=== PATIENT | female | born 1975 | race Caucasian/White ===

== ENCOUNTER 2019-02-21 06:55 | Emergency (ER) | payer BC, SELFPAY ==
[2019-02-21 06:59] VITALS: BP 152/88; PULSE 118; RESP 18; TEMP 37.1; O2SAT 98
--- NOTE | 2019-02-21 07:04 | ED.GENADUL_ITS ---
Discharge Plan Disposition Patient Disposition: HOME Condition: Good Discharge Details Chief Complaint: Urinary Clinical Impression: UTI (urinary tract infection), uncomplicated Primary Care Provider: Anastasia Lehman ED Provider: Jacob Duvall Medluis and New Rx's Prescriptions: New phenazopyridine 100 mg tablet 100 mg PO TID PRN (Reason: dysuria) Qty: 6 RF: 0 nitrofurantoin macrocrystal 100 mg capsule 100 mg PO BID Qty: 10 RF: 0 fluconazole 150 mg tablet 150 mg PO ONCE Qty: 1 RF: 0 Continued multivitamin [Daily Multiple] 1 EACH tablet 1 ea PO DAILY RF: 0 Vitamin C 250 MG tablet,chewable 2 tab PO DAILY RF: 0 cholecalciferol (vitamin D3) 1,000 UNIT capsule 1,000 unit PO DAILY RF: 0 Fish Oil 1 EACH capsule 1 ea PO DAILY RF: 0 Discharge Instructions Instructions: Urinary Tract Infection in Women (ED) Additional Instructions: Take antibiotic as prescribed. Use Pyridium if needed for urinary symptoms. Diflucan is developed yeast infection. Drink plenty of fluids and stay hydrated. Follow-up with primary care next week if not better. Return to ED if you develop high fevers, back pain, abdominal pain, vomiting, other concerns. Referrals: Anastasia Lehman MD [Primary Care Provider] - Medical Decision Making Patient presenting with UTI symptoms. She has no other related symptoms. Suspect simple cystitis. Urine test is negative. Urinalysis dip positive for blood and leuks. Micro shows red cells and white cells but also epithelial cells. However, given patient's symptomatology will presume cystitis and will start on Macrobid and Pyridium. Patient requests Diflucan as she typically gets yeast infection after antibiotics. We will provide that prescription as well. Follow-up with primary care next week if not better. Return to ED if fever, flank pain, abdominal pain, other problems. Lab Data Lab results reviewed: Yes I reviewed the patient's lab results. HPI General Mode of arrival: ambulatory . Date/Time Provider Initiated Documentation: 02/21/19 07:03 . Limitations to Documentation: no limitations . Information obtained by: patient and RN notes reviewed . HPI Narrative: Patient presents to ED with complaint of dysuria, urgency, slight hematuria at times. Symptoms started yesterday. She has not had a UTI in years. She denies fever, chills, vomiting, back pain, abdominal pain. Related Data Home Medications Medication Instructions Recorded Confirmed Fish Oil 1 ea PO DAILY 01/03/15 02/21/19 Vitamin C 2 tab PO DAILY tab.chew 01/03/15 02/21/19 cholecalciferol (vitamin D3) 1,000 unit PO DAILY 01/03/15 02/21/19 multivitamin [Daily Multiple] 1 ea PO DAILY 01/03/15 02/21/19 fluconazole 150 mg PO ONCE #1 tab 02/21/19 nitrofurantoin macrocrystal 100 mg PO BID #10 cap 02/21/19 phenazopyridine 100 mg PO TID PRN #6 tab 02/21/19 Previous Rx's Medication Instructions Recorded fluconazole 150 mg PO ONCE #1 tab 02/21/19 nitrofurantoin macrocrystal 100 mg PO BID #10 cap 02/21/19 phenazopyridine 100 mg PO TID PRN #6 tab 02/21/19 Allergies Allergy/AdvReac Type Severity Reaction Status Date / Time No Known Allergies Allergy Unverified 02/21/19 07:02 General Stated Complaint: Urinary LESTER: 4 Review of Systems Narrative: As documented in HPI otherwise negative as below. Const: no fever, chills, weakness Resp: no cough, SOB, pleuritic pain CV: no CP, diaphoresis, edema, syncope GI: no abdominal pain, nausea, vomiting, diarrhea Neuro: no headache, numbness, focal weakness, confusion PFSH Family History Mother Personal history of malignant neoplasm BREAST Father No problems noted. Sister No problems noted. Grandfather No problems noted. Grandfather Heart disease Stroke Grandmother No problems noted. Grandmother Essential hypertension Social History Smoking/Tobacco Use Status: Never Alcohol Intake: never Drug use: Never Substance use type: does not use Do you feel safe at home: Yes Do you feel safe in your relationship?: Yes Exam Narrative Exam Narrative: Vitals: Afebrile. Elevated blood pressure and heart rate, likely related to anxiety. Const: WDWN female in NAD. HEENT: NC/AT. Normal facial exam. Eyes: Normal conjunctiva and sclera. Neck: Supple. Trachea midline. Lungs: Normal respiratory effort. GI: Soft. NT/ND. No guarding or rebound. Back: No CVAT. Neuro: A+O x 3. CN grossly in tact. Good strength and no focal deficit. Course Vital Signs Vital signs: Vital Signs Temperature 98.8 F 02/21/19 06:59 Pulse 118 H 02/21/19 06:59 Respiratory Rate 18 02/21/19 06:59 Blood Pressure 152/88 H 02/21/19 06:59 Pulse Oximetry 98 02/21/19 06:59 Temperature 98.8 F 02/21/19 06:59 Temperature Source Temporal Artery Scan 02/21/19 06:59 Pulse 118 H 02/21/19 06:59 Respiratory Rate 18 02/21/19 06:59 Respiratory Effort Non-Labored 02/21/19 06:59 Blood Pressure 152/88 H 02/21/19 06:59 Blood Pressure Position Sitting 02/21/19 06:59 Pulse Oximetry 98 02/21/19 06:59 Oxygen Delivery Method Room Air 02/21/19 06:59 Oxygen Flow Rate 0 02/21/19 06:59 Pain Level 0 02/21/19 06:59
[2019-02-21 07:10] LABS: Bilirubin Negative (Negative); Blood Moderate (Negative); Clarity Clear (Clear); Glucose Negative (Negative); Ketones Negative (Negative); Leukocyte Esterase Small (Negative); Nitrite Negative (Negative); Specific Gravity <= 1.005 (1.005-1.025); Urobilinogen 0.2 EU/dL (Up TO 0.2)
[2019-02-21 07:20] LABS: Bacteria Few HPF (Negative); C & S Indicated? No/Sq. Contamination; Casts Negative LPF (Negative); Crystals Negative HPF (Negative); Epithelial Cells Moderate HPF (Negative); Mucus Negative (Negative); Other Cells Negative (Negative)
[2019-02-21] MEDS: MacroBID 100 MG CAP PO (07:34)
[2019-02-21] MEDS: Phenazopyridine 100 MG TAB PO (07:34)
[2019-02-21 07:37] VITALS: PULSE 89; RESP 16
== END 2019-02-21 07:36 | disposition home or self-care (01) ==
PROVIDERS: Emergency Provider Emergency Medicine; PCP Family Medicine
DX: N39.0 Urinary tract infection, site not specified (principal)
CPT/HCPCS: 81025; 99283; 81003; 81015

== ENCOUNTER 2019-05-08 00:11 | Emergency (ER) | payer BC, SELFPAY ==
[2019-05-08 00:16] VITALS: BP 149/77; PULSE 93; RESP 16; TEMP 37.2; O2SAT 99
[2019-05-08 00:21] VITALS: RESP 16
--- NOTE | 2019-05-08 00:21 | W.ED.GENAD ---
Discharge Plan Disposition Patient Disposition: HOME Condition: Good Discharge Details Chief Complaint: GenMedical Clinical Impression: Cellulitis of hand Primary Care Provider: Anastasia Lehman ED Provider: Matthew Lombardo Home Meds and New Rx's Prescriptions: New cephalexin [Keflex] 500 mg capsule 500 mg PO QID 7 Days Qty: 28 RF: 0 Continued multivitamin [Daily Multiple] 1 EACH tablet 1 ea PO DAILY RF: 0 Vitamin C 250 MG tablet,chewable 2 tab PO DAILY RF: 0 cholecalciferol (vitamin D3) 1,000 UNIT capsule 1,000 unit PO DAILY RF: 0 Fish Oil 1 EACH capsule 1 ea PO DAILY RF: 0 Discharge Instructions Instructions: Cellulitis (ED) Additional Instructions: At this time I believe you have a very mild infection on the dorsum of your hand. Please take the Keflex as directed. Please continue to use ice, Tylenol and Motrin. If you notice any worsening of your symptoms, or any new symptoms such as spreading of the swelling or redness, worsening of pain in your hand or fingers, vomiting, diarrhea, fever, chills, shortness of breath, chest pain, numbness, weakness, or fainting , please return immediately to the emergency department for reevaluation. Please follow up with your primary care provider as soon as possible for reassessment and reevaluation. As always, it was a pleasure participating in your medical care today. Referrals: Anastasia Lehman MD [Primary Care Provider] - Discharge Data Discharge Date/Time-TO BE ENTERED AT DEPARTURE: 05/08/19 00:25 Medical Decision Making This is a pleasant 43-year-old female who is right-hand dominant who presents with mild swelling on the dorsal aspect of her right hand. She had a small scrape on her finger 48 hours ago, then potentially unrelated noted the swelling in the last 24 hours on the dorsal aspect of her hand. Minimal warmth, minimal redness, minimal tenderness on palpation, no fluctuance or evidence of abscess. No clinical evidence of flexor or extensor tenosynovitis. No red streaking traveling proximally. Patient may have had a small ganglionic cyst that ruptured causing secondary inflammation, but this also does have a likelihood of being potential mild early cellulitis. Recommend treatments with ice, Tylenol, Motrin, and Keflex. We will give the first dose here and a prescription for home use. Discussed red flags for which to return. I have extensively reviewed the treatment plan and discharge instructions with the patient and their family. I have addressed all patient concerns at this time. The patient and family was made aware of what symptoms to monitor for that would warrant a return to the emergency department. Discussed the plan with the patient and family, they demonstrate verbal understanding and agreement with our assessment and plan at this time. HPI General Date/Time Provider Initiated Documentation: 05/08/19 00:11. HPI Narrative: This is a 43-year-old female who is right-hand dominant who presents with swelling of the dorsal aspect of her right hand. She states that the swelling began earlier today, she did scratch her index finger 48 hours ago on a plastic light switch, and then noticed the swelling on the dorsal aspect of her hand today. Slightly tender to the touch, mildly warm. Minimal pain with movement of the hand. She denies fever or chills or other complaints. She denies any bites by dogs or cats. Tetanus was updated 8 years ago. No other complaints at this time. Related Data Home Medications Medication Instructions Recorded Confirmed Fish Oil 1 ea PO DAILY 01/03/15 02/21/19 Vitamin C 2 tab PO DAILY tab.chew 01/03/15 02/21/19 cholecalciferol (vitamin D3) 1,000 unit PO DAILY 01/03/15 02/21/19 multivitamin [Daily Multiple] 1 ea PO DAILY 01/03/15 02/21/19 cephalexin [Keflex] 500 mg PO QID 7 Days #28 cap 05/08/19 Previous Rx's Medication Instructions Recorded cephalexin [Keflex] 500 mg PO QID 7 Days #28 cap 05/08/19 Allergies Allergy/AdvReac Type Severity Reaction Status Date / Time No Known Allergies Allergy Unverified 02/21/19 07:02 General Stated Complaint: GenMedical LESTER: 4 Review of Systems All systems reviewed & are unremarkable except as noted in HPI and below PFSH Family History Mother Personal history of malignant neoplasm BREAST Father No problems noted. Sister No problems noted. Grandfather No problems noted. Grandfather Heart disease Stroke Grandmother No problems noted. Grandmother Essential hypertension Social History Smoking/Tobacco Use Status: Never Alcohol Intake: never Drug use: Never Substance use type: does not use Do you feel safe at home: Yes Do you feel safe in your relationship?: Yes Exam Narrative Exam Narrative: 1.Const: Well-nourished, Well-developed, appearing stated age 2.Eyes: PERRL, no conjunctival injection, and symmetrical lids. 3.ENT: Atraumatic external nose and ears. Moist MM. Neck: Symmetric, trachea midline, No thyromegaly. 4.CVS: +S1/S2, No murmurs or gallops. Peripheral pulses 2+ and equal in all extremities. Brisk capillary refill in all extremities. 5.RESP: Unlabored respiratory effort. Clear to auscultation bilaterally. No wheezes rales or rhonchi 6.GI: Soft, Nontender/Nondistended, No hepatosplenomegaly. No guarding or rebound. 7.MSK: Normocephalic/Atraumatic, Extremities w/o deformity or significant Ttp No cyanosis or clubbing, Normal movement of all extremities. Right hand: Symmetrically palpable radial and ulnar pulses. Capillary refill less than 2 seconds to all digits. Intact sensation to light touch of the radial, median and ulnar nerves demonstrated by testing in the dorsal web space of the thumb, the distal palmar aspect of the index finger, and the lateral surface of the fifth finger. 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 Intact recurrent median nerve as demonstrated by ability to move thumb fully through opposition, abduction and flexion. There is no tenderness whatsoever on passive or active flexion or extension of all fingers. Patient does have mild swelling of the dorsal aspect of the right hand, no fluctuance, minimal warmth. Minimal redness. No subcutaneous crepitus. No evidence of significant abrasion laceration or scrape. There is a small scratch noted on the index finger however this is no surrounding erythema edema or fluctuance or signs of infection whatsoever. No clinical evidence of flexor or extensor tenosynovitis. No tracking redness 8.Skin: Warm, Dry. No rashes or lesions. 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 Sensation grossly intact, no focal neurologic deficits. 10.Psych: (AAO) x3. Appropriate mood and affect Course Vital Signs Vital signs: Vital Signs Temperature 37.2 C 05/08/19 00:16 Pulse 93 H 05/08/19 00:16 Respiratory Rate 16 05/08/19 00:16 Blood Pressure 149/77 H 05/08/19 00:16 Pulse Oximetry 99 05/08/19 00:16 Temperature 37.2 C 05/08/19 00:16 Temperature Source Skin 05/08/19 00:16 Pulse 93 H 05/08/19 00:16 Respiratory Rate 16 05/08/19 00:16 Blood Pressure 149/77 H 05/08/19 00:16 Blood Pressure Position Sitting 05/08/19 00:16 Pulse Oximetry 99 05/08/19 00:16 Oxygen Delivery Method Room Air 05/08/19 00:16 Oxygen Flow Rate 0 05/08/19 00:16 Pain Level 4 05/08/19 00:16
[2019-05-08] MEDS: Cephalexin 500 MG CAP PO (00:26)
== END 2019-05-08 00:25 | disposition home or self-care (01) ==
LOC: ER 00:30
PROVIDERS: Emergency Provider Student in an Organized Health Care Education/Training Program; PCP Family Medicine
DX: L03.113 Cellulitis of right upper limb (principal); S60.410A Abrasion of right index finger, initial encounter; W26.8XXA Contact with other sharp object(s), not elsewhere classified, initial encounter
CPT/HCPCS: 99283

== ENCOUNTER 2021-09-02 03:29 | Outpatient (CLI) | payer BC, SELFPAY ==
[2021-09-02 07:25] LABS: HCT 44.1 % (36.0-46.0); HGB 14.4 g/dL (11.2-15.7); MCH 30.7 pg (27.0-33.0); MCHC 32.7 % (32.0-36.0); MCV 94 fL (80-95); MPV 9.7 fL (8.0-11.0); Platelet Count 338 10^3/uL (130-400); RBC 4.69 10^6/uL (3.93-5.22); RDW 12.2 % (11.7-14.6); RDW-SD 42.6 fL; WBC 6.71 10^3/uL (4.4-10.8)
[2021-09-02 08:31] LABS: ALT 20 U/L (14-59); AST 12 U/L (15-37); Alkaline Phosphatase 61 U/L (46-116); Anion Gap 10.7 mmol/L (3-11); BUN 7 mg/dL (7-18); CO2 27.3 mmol/L (21.0-32.0); CREATININE 0.7 mg/dL (0.55-1.02); Calcium 9.3 mg/dL (8.5-10.1); Calculated LDL 107 mg/dL (<100); Chloride 104 mmol/L (98-107); Cholesterol 191 mg/dL (<200); Glucose 111 mg/dL (74-106); HDL Cholesterol 68 mg/dL (40-60); Sodium 142 mmol/L (136-145); Total Protein 7.1 g/dL (6.4-8.2); Triglyceride 84 mg/dL (<150)
[2021-09-02 08:50] LABS: Bilirubin, Total 0.3 mg/dL (0.2-1.0)
[2021-09-03 10:20] LABS: Hepatitis C Ab w Rflx HCV PCR Negative (Negative)
[2021-09-03 10:26] LABS: HIV-1/2 Ag & Ab Screen Negative (Negative)
== END 2021-09-02 03:30 | disposition home or self-care (01) ==
LOC: LBO 03:29
PROVIDERS: PCP Nurse Practitioner; Visit Provider Family Medicine
DX: I10 Essential (primary) hypertension (principal); Z13.220 Encounter for screening for lipoid disorders; Z11.4 Encounter for screening for human immunodeficiency virus [HIV]; Z11.59 Encounter for screening for other viral diseases
CPT/HCPCS: 36415; 80053; 80061; 85027; 86803; 87389; 84443

== ENCOUNTER 2023-11-23 18:31 | Outpatient (REF) | payer BC, SELFPAY ==
--- OUTSIDE RECORDS SUMMARY | 2023-11-23 18:33 | XMS_ITS | Continuity of Care Document ---
Author Organization [facility] Address [address] [place] [address] Encounter [id number] FIN NBR [id number] Date(s): 10/26/23 - 10/26/[address] [id number] Discharge Disposition: Home Allergies, Adverse Reactions, Alerts No Known Medication Allergies Assessment and Plan Future Appointments Future Scheduled Tests Radiology* MG Mammo Screening Bilateral 12/16/23 Medications calcium carbonate 600 mg (elemental Ca 240 mg) oral tablet 600 mg 1 tab, Oral, BID, 0 Refill(s) Start Date: 10/28/22 Status: Ordered Eligen B12 1000 mcg oral tablet 1 tab, Oral, Daily, on an empty stomach, 0 Refill(s) Start Date: 10/28/22 Status: Ordered Fish Oil 500 mg oral capsule 1,000 mg = 2 cap, Oral, BID, 0 Refill(s) Start Date: 10/28/22 Status: Ordered magnesium oxide 400 mg (241.3 mg elemental magnesium) oral tablet 400 mg = 1 tab, Oral, Daily, 0 Refill(s) Start Date: 10/28/22 Stop Date: 11/04/22 Status: Ordered multivitamin adult, oral tablet 1 tab, Oral, Daily, 0 Refill(s) Start Date: 10/28/22 Status: Ordered Vitamin D3 400 intl units oral tablet 10 mcg = 1 tab, Oral, Daily, 0 Refill(s) Start Date: 10/28/22 Status: Ordered Problem List Condition Confirmation Course Effective Dates Status Health St atus Informant H/O: vertigo Confirmed Active Heart murmur Confirmed Active Procedures Procedure Date Related Diagnosis Body Site Status Colonoscopy 1 07/29/23 Completed Extraction of wisdom tooth Completed 1auto-populated from documented surgical case Social History Social History Type Response Tobacco Never tobacco user T obacco Use:. Sex Female Patient Care team information Care Team Related Persons Name: MARIANELA MORE Address: Home
--- OUTSIDE RECORDS SUMMARY | 2023-11-23 18:33 | XMS_ITS | Continuity of Care Document ---
Author Organization [facility] Address [address] [place] [address] Encounter LTTL_DC FIN NBR [id number] Date(s): 07/29/23 - 07/29/[address] [address]- Encounter Diagnosis Encounter for screening colonoscopy(Discharge Diagnosis) - 07/29/23 Discharge Disposition: Home or Self Care Attending Physician: Jorge Garvin MD Admitting Physician: Jorge Garvin MD Referring Physician: Jorge Garvin MD Allergies, Adverse Reactions, Alerts No Known Medication Allergies Assessment and Plan Extracted from: Title:H & P Author:Jorge Garvin MD Valerio e:07/29/23 1.??Encounter for screening colonoscopy??Z12.11 ??Colonoscopy today. Orders: sodium chloride 0.9% flush, 10 mL, IV Flush, Injection, every 8 hr, First Dose: 07/29/23 7:00:00 EDT, Routine sodium chloride 0.9% flush, 10 mL, IV Flush, Injection, As Directed, First Dose: 07/29/23 6:50:00 EDT, Physician Stop, Routine Sodium Chloride 0.9% 1,000 mL, Total Volume (mL): 1,000, 1,000 mL, Soln-IV, IV, 50 mL/hr, Start Date: 07/29/23 6:50:00 EDT, 67 kg, Populate Charting Weight From Order, 1.7, m2 Blood Glucose Monitoring POC RE, 07/29/23 6:50:00 EDT, Stop date 07/29/23 6:50:00 EDT Diet Order, 07/29/23 6:52:00 EDT, Regular Discharge Patient, 07/29/23 6:52:00 EDT, Discharge when stable per anesthesia criteria Discharge Patient, 07/29/23 6:52:00 EDT, Discharge when stable per SDS criteria Discharge Patient Instructions, Do not sign any contracts, make any major decisions, or drive or operate machinery for 24 hours Discharge Patient Instructions, It is important that a responsible adult drive you home today Discharge Patient Instructions, You may resume your normal activity in 24 hours Discharge Patient Instructions, A light first meal may feel better in your stomach Discharge Patient Instructions, Call with any additional questions or concerns Discharge Patient Instructions, Passing gas rectally and belching is normal Discharge Patient Instructions, Call or come to emergency department for fever greater than 100 ??F Discharge Patient Instructions, Cramping and abdominal bloating should subside in 1 hour or so Discharge Patient Instructions, Call or come to emergency department chest pain, or shortness of breath Discharge Patient Instructions, You may experience some gas cramps and abdominal bloating Discharge Patient Instructions, Call or come to emergency department for dizziness Discharge Patient Instructions, Call or come to emergency department if vomiting blood or having black bowel movements, rectal bleeding or passing blood clots Discharge Patient Instructions, Call or come to emergency department if having unusual pain or severe abdominal pain Discharge Patient Instructions, Avoid alcohol, tranquilizers, sleeping pills, or cold medicines for 24 hours Discharge Patient Instructions, You should not be responsible for the care of others Obtain consent, 07/29/23 6:50:00 EDT, Constant Order, 07/29/23 6:50:00 EDT Peripheral IV Insertion, 07/29/23 6:50:00 EDT Saline Lock Convert From IV, 07/29/23 6:50:00 EDT, Stop date 07/29/23 6:50:00 EDT Vital Signs, 07/29/23 6:52:00 EDT, Stop date 07/29/23 6:52:00 EDT, As needed Vital Signs, 07/29/23 6:50:00 EDT, Stop date 07/29/23 6:50:00 EDT, Routine Vital Signs, 07/29/23 6:52:00 EDT, Once, Stop date 07/29/23 6:52:00 EDT Future Appointments Medications calcium carbonate 600 mg (elemental Ca [...] Date Related Diagnosis Body Site Status Colonoscopy Biopsy 1 07/29/23 Comp leted Extraction of wisdom tooth Completed 1auto-populated from documented surgical case Vital Signs Most recent to oldest [Reference Range]: 1 2 Temperature Temporal Artery [36-38 Deg C ] 36.9 Deg C (07/29/23 11:15 AM) 36.8 Deg C (07/29/23 9:25 AM) Heart Rate Monitored [60-100 bpm] 97 bpm (07/29/23 11:15 AM) Respiratory Rate [12-24 br/min] 16 br/mi n (07/29/23 11:15 AM) 16 br/min (07/29/23 9:25 AM) Blood Pressure [90-140/60-90 mmHg] 119/8 4mmHg (07/29/23 11:15 AM) 120/84mmHg (07/29/23 9:25 AM) Weight 68.95 kg (07/29/23 9:25 AM) 67 kg (07/24/23 3:23 PM) Weight Dosing 67.000 kg (07/24/23 3:23 PM) Height 155 cm (07/29/23 9:25 AM) 155 cm (07/24/23 3:23 PM) Body Mass Index 28.7 kg/m2 (07/29/23 9:25 AM) Social History Social History Type Response Tobacco Never tobacco user T obacco Use:. Sex Hospital Discharge Instructions Patient Education 07/29/2023 10:29:55 Colonoscopy, Adult, Care After Colonoscopy, Adult, Care After The following information offers guidance on how to care for yourself after your procedure. Your health care provider may also give you more specific instructions. If you have problems or questions, contact your health care provider. What can I expect after the procedure? After the procedure, it is common to have: ??? A small amount of blood in your stool for 24 hours after the procedure. ??? Some gas. ??? Mild cramping or bloating of your abdomen. Follow these instructions at home: Eating and drinking ??? Drink enough fluid to keep your urine pale yellow. ??? Follow instructions from your health care provider about eating or drinking restrictions. ??? Resume your normal diet as told by your health care provider. Avoid heavy or fried foods that are hard to digest. Activity ??? Rest as told by your health care provider. ??? Avoid sitting for a long time without moving. Get up to take short walks every 1???2 hours. This is important to improve blood flow and breathing. Ask for help if you feel weak or unsteady. ??? Return to your normal activities as told by your health care provider. Ask your health care provider what activities are safe for you. Managing cramping and bloating ??? Try walking around when you have cramps or feel bloated. ??? If directed, apply heat to your abdomen as told by your health care provider. Use the heat source that your health care provider recommends, such as a moist heat pack or a heating pad. ??? Place a towel between your skin and the heat source. ??? Leave the heat on for 20???30 minutes. ??? Remove the heat if your skin turns bright red. This is especially important if you are unable to feel pain, heat, or cold. You have a greater risk of getting burned. General instructions ??? If you were given a sedative during the procedure, it can affect you for several hours. Do not drive or operate machinery until your health care provider says that it is safe. ??? For the first 24 hours after the procedure: ??? Do not sign important documents. ??? Do not drink alcohol. ??? Do your regular daily activities at a slower pace than normal. ??? Eat soft foods that are easy to digest. ??? Take [id number] and prescription medicines only as told by your health care provider. ??? Keep all follow-up visits. This is important. Contact a health care provider if: ??? You have blood in your stool 2???3 days after the procedure. Get help right away if: ??? You have more than a small spotting of blood in your stool. ??? You have large blood clots in your stool. ??? You have swelling of your abdomen. ??? You have nausea or vomiting. ??? You have a fever. ??? You have increasing pain in your abdomen that is not relieved with medicine. These symptoms may be an emergency. Get help right away. Call 911. ??? Do not wait to see if the symptoms will go away. ??? Do not drive yourself to the hospital. Summary ??? After the procedure, it is common to have a small amount of blood in your stool. You may also have mild cramping and bloating of your abdomen. ??? If you were given a sedative during the procedure, it can affect you for several hours. Do not drive or operate machinery until your health care provider says that it is safe. ??? Get help right away if you have a lot of blood in your stool, nausea or vomiting, a fever, or increased pain in your abdomen. This information is not intended to replace advice given to you by your health care provider. Make sure you discuss any questions you have with your health care provider. Document Revised: 11/27/2021 Document Reviewed: 11/27/2021 [employer] Patient Education ?? 2022 [employer] Discharge instructions * Kerrie Rosenthal: PERFORM Event Display: Discharge Instructions Authored Date: [id number] ZION MORE :1975 Age:47 years Sex:Female Visit Date:07/29/2023 Hospital Discharge Instructions We would like to thank you for allowing us to assist you with your healthcare needs. The following includes patient education materials and information regarding your injury/illness. Your Next Steps Discharge Orders Discharge Patient Instructions, You may experience some gas cramps and abdominal bloating Discharge Patient Instructions, Cramping and abdominal bloating should subside in 1 hour or so Discharge Patient Instructions, Passing gas rectally and belching is normal Discharge Patient Instructions, A light first meal may feel better in your stomach Discharge Patient Instructions, You may resume your normal activity in 24 hours Discharge Patient Instructions, It is important that a responsible adult drive you home today Discharge Patient Instructions, Do not sign any contracts, make any major decisions, or drive or operate machinery for 24 hours Discharge Patient Instructions, You should not be responsible for the care of others Discharge Patient Instructions, Avoid alcohol, tranquilizers, sleeping pills, or cold medicines for24 hours Discharge Patient Instructions, Call or come to emergency department if having unusual pain or severe abdominal pain Discharge Patient Instructions, Call or come to emergency department if vomiting blood or having black bowel movements, rectal bleeding or passing blood clots Discharge Patient Instructions, Call or come to emergency department for dizziness Discharge Patient Instructions, Call or come to emergency department chest pain, or shortness of breath Discharge Patient Instructions, Call or come to emergency department for fever greater than 100 ??F Discharge Patient Instructions, Call with any additional questions or concerns Scheduled Future Appointments Thursday 8:00 AM EDT ?? With: Leila Paredes, MANAGER MERCHANDISE Where: [facility] Women's Health Status: Confirmed Medications What How Much When Instructions Next Dose Unchanged calcium carbonate (calcium carbonate 600 mg (elemental Ca 240 mg) oral tablet) 1 tab Oral (given by mouth) 2 times a day Unchanged cholecalciferol (Vitamin D3 400 intl units oral tablet) 1 tab Oral (given by mouth) Every day Unchanged cyanocobalamin (Eligen B12 1000 mcg oral tablet) 1 tab Oral (given by mouth) Every day on an empty stomach ?? Unchanged magnesium oxide (magnesium oxide 400 mg (241.3 mg elemental magnesium) oral tablet) 1 tab Oral (given by mouth) Every day Unchanged multivitamin (multivitamin adult, oral tablet) 1 tab Oral (given by mouth) Every day Unchanged omega-3 polyunsaturated fatty acids (Fish Oil 500 mg oral capsule) 2 Capsules Oral (given by mouth) 2 times a day Your Summary Your Care Team Admitting Physician - Jorge Garvin MD Attending Physician - Jorge Garvin MD Referring Physician - Jorge Garvin MD Your Diagnosis Encounter for screening colonoscopy Problems Ongoing - Any problem that you are currently receiving treatment for. H/O: vertigo Heart murmur Historical - Any problem that you are no longer receiving treatment for. Procedures Performed ???Colonoscopy Biopsy (07/29/2023) Discharge Vitals Temperature??(Temporal Artery) 98.2 ??F (36.8 ??C) Respiratory Rate?? 16 Blood Pressure?? 120/84?? SpO2?? 100% Height?? 61.02 in (155 cm) Weight?? 152.03 lb (68.95 kg) BMI?? 28.7 Allergies No Known Medication Allergies Education Materials Colonoscopy, Adult, Care After The following information offers guidance on how to care for yourself after your procedure. Your health care provider may also give you more specific instructions. If you have problems or questions, contact your health care provider. What can I expect after the procedure? After the procedure, it is common to have: ? A small amount of blood in your stool for 24 hours after the procedure. ? Some gas. ? Mild cramping or bloating of your abdomen. Follow these instructions at home: Eating and drinking ? Drink enough fluid to keep your urine pale yellow. ? Follow instructions from your health care provider about eating or drinking restrictions. ? Resume your normal diet as told by your health care provider. Avoid heavy or fried foods that are hard to digest. Activity ? Rest as told by your health care provider. ? Avoid sitting for a long time without moving. Get up to take short walks every 1???2 hours. This isimportant to improve blood flow and breathing. Ask for help if you feel weak or unsteady. ? Return to your normal activities as told by your health care provider. Ask your health care provider what activities are safe for you. Managing cramping and bloating ? Try walking around when you have cramps or feel bloated. ? If directed, apply heat to your abdomen as told by your health care provider. Use the heat source that your health care provider recommends, such as a moist heat pack or a heating pad. ? Place a towel between your skin and the heat source. ? Leave the heat on for 20???30 minutes. ? Remove the heat if your skin turns bright red. This is especially important if you are unable to feel pain, heat, or cold. You have a greater risk of getting burned. General instructions ? If you were given a sedative during the procedure, it can affect you for several hours. Do not drive or operate machinery until your health care provider says that it is safe. ? For the first 24 hours after the procedure: ? Do not sign important documents. ? Do not drink alcohol. ? Do your regular daily activities at a slower pace than normal. ? Eat soft foods that are easy to digest. ? Take hqtl-mqr-zebevnu and prescription medicines only as told by your health care provider. ? Keep all follow-up visits. This is important. Contact a health care provider if: ? You have blood in your stool 2???3 days after the procedure. Get help right away if: ? You have more than a small spotting of blood in your stool. ? You have large blood clots in your stool. ? You have swelling of your abdomen. ? You have nausea or vomiting. ? You have a fever. ? You have increasing pain in your abdomen that is not relieved with medicine. These symptoms may be an emergency. Get help right away. Call 911. ? Do not wait to see if the symptoms will go away. ? Do not drive yourself to the hospital. Summary ? After the procedure, it is common to have a small amount of blood in your stool. You may also have mild cramping and bloating of your abdomen. ? If you were given a sedative during the procedure, it can affect you for several hours. Do not drive or operate machinery until your health care provider says that it is safe. ? Get help right away if you have a lot of blood in your stool, nausea or vomiting, a fever, or increased pain in your abdomen. This information is not intended to replace advice given to you by your health care provider. Make sure you discuss any questions you have with your health care provider. Document Revised: 11/27/2021 Document Reviewed: 11/27/2021 [employer] Patient Education ?? 2022 [employer] Patient/Bag End Sewer Signature Patient Name:ZION MORE I have received this information and my questions have been answered. Patient/Bag End Sewer Name: Patient/Bag End Sewer Signature: Relationship to Patient: Witness Name/Signature: Date: Electronically Signed on: 07/29/2023 11:32 EDTSigned by:Kerrie Calle A: PERFORM Event Display: Discharge Instructions Authored Date: [id number] ZION MORE :1975 Age:47 years Sex:Female Visit Date:07/29/2023 Hospital Discharge Instructions We would like to thank you for allowing us to assist you with your healthcare needs. The following includes patient education materials and information regarding your injury/illness. Your Next Steps Discharge Orders Discharge Patient Instructions, You may experience some gas cramps and abdominal bloating Discharge Patient Instructions, Cramping and abdominal bloating should subside in 1 hour or so Discharge Patient Instructions, Passing gas rectally and belching is normal Discharge Patient Instructions, A light first meal may feel better in your stomach Discharge Patient Instructions, You may resume your normal activity in 24 hours Discharge Patient Instructions, It is important that a responsible adult drive you home today Discharge Patient Instructions, Do not sign any contracts, make any major decisions, or drive or operate machinery for 24 hours Discharge Patient Instructions, You should not be responsible for the care of others Discharge Patient Instructions, Avoid alcohol, tranquilizers, sleeping pills, or cold medicines for24 hours Discharge Patient Instructions, Call or come to emergency department if having unusual pain or severe abdominal pain Discharge Patient Instructions, Call or come to emergency department if vomiting blood or having black bowel movements, rectal bleeding or passing blood clots Discharge Patient Instructions, Call or come to emergency department for dizziness Discharge Patient Instructions, Call or come to emergency department chest pain, or shortness of breath Discharge Patient Instructions, Call or come to emergency department for fever greater than 100 ??F Discharge Patient Instructions, Call with any additional questions or concerns Scheduled Future Appointments Thursday 8:00 AM EDT ?? With: Leila Paredes APRN Where: [facility] Women's Health Status: Confirmed Medications What How Much When Instructions Next Dose Unchanged calcium carbonate (calcium carbonate 600 mg (elemental Ca 240 mg) oral tablet) 1 tab Oral (given by mouth) 2 times a day Unchanged cholecalciferol (Vitamin D3 400 intl units oral tablet) 1 tab Oral (given by mouth) Every day Unchanged cyanocobalamin (Eligen B12 1000 mcg oral tablet) 1 tab Oral (given by mouth) Every day on an empty stomach ?? Unchanged magnesium oxide (magnesium oxide 400 mg (241.3 mg elemental magnesium) oral tablet) 1 tab Oral (given by mouth) Every day Unchanged multivitamin (multivitamin adult, oral tablet) 1 tab Oral (given by mouth) Every day Unchanged omega-3 polyunsaturated fatty acids (Fish Oil 500 mg oral capsule) 2 Capsules Oral (given by mouth) 2 times a day Your Summary Your Care Team Admitting Physician - Jorge Garvin MD Attending Physician - Jorge Garvin MD Referring Physician - Jorge Garvin MD Your Diagnosis Encounter for screening colonoscopy Problems Ongoing - Any problem that you are currently receiving treatment for. H/O: vertigo Heart murmur Historical - Any problem that you are no longer receiving treatment for. Procedures Performed ???Colonoscopy Biopsy (07/29/2023) Discharge Vitals Temperature??(Temporal Artery) 98.2 ??F (36.8 ??C) Respiratory Rate?? 16 Blood Pressure?? 120/84?? SpO2?? 100% Height?? 61.02 in (155 cm) Weight?? 152.03 lb (68.95 kg) BMI?? 28.7 Allergies No Known Medication Allergies Patient/Bag End Sewer Signature Patient Name:ZION MORE I have received this information and my questions have been answered. Patient/Bag End Sewer Name: Patient/Bag End Sewer Signature: Relationship to Patient: Witness Name/Signature: Date: Electronically Signed on: 07/29/2023 11:26 EDTSigned by:GAG History and physical note * Event Display: History and Physical Update * Jorge Garvin MD: PERFORM Event Display: History and Physical Authored Date: [id number] ZION MORE :1975 Age:47 years Sex:Female Visit Date:07/29/2023 History of Present Illness 47-year-old female at average risk for colorectal cancer for index reading colonoscopy. Physical Exam Vitals & Measurements T:??36.8?C ??(Temporal Artery)?? RR:??16?? BP:??120/84?? SpO2:??100%?? HT:??155??cm?? WT:??68.95??kg?? BMI:??28.7?? O2 Therapy:??Room air?? Well-developed well-nourished white female no acute distress Lungs: Clear to auscultation bilaterally Heart: Regular rhythm S1-S2 Abdomen: Soft nontender Assessment/Plan 1.??Encounter for screening colonoscopy??Z12.11 ??Colonoscopy today. Orders: sodium chloride 0.9% flush, 10 mL, IV Flush, Injection, every 8 hr, First Dose: 07/29/23 7:00:00 EDT, Routine sodium chloride 0.9% flush, 10 mL, IV Flush, Injection, As Directed, First Dose: 07/29/23 6:50:00 EDT, Physician Stop, Routine Sodium Chloride 0.9% 1,000 mL, Total Volume (mL): 1,000, 1,000 mL, Soln-IV, IV, 50 mL/hr, Start Date: 07/29/23 6:50:00 EDT, 67 kg, Populate Charting Weight From Order, 1.7, m2 Blood Glucose Monitoring POC RE, 07/29/23 6:50:00 EDT, Stop date 07/29/23 6:50:00 EDT Diet Order, 07/29/23 6:52:00 EDT, Regular Discharge Patient, 07/29/23 6:52:00 EDT, Discharge when stable per anesthesia criteria Discharge Patient, 07/29/23 6:52:00 EDT, Discharge when stable per SDS criteria Discharge Patient Instructions, Do not sign any contracts, make any major decisions, or drive or operate machinery for 24 hours Discharge Patient Instructions, It is important that a responsible adult drive you home today Discharge Patient Instructions, You may resume your normal activity in 24 hours Discharge Patient Instructions, A light first meal may feel better in your stomach Discharge Patient Instructions, Call with any additional questions or concerns Discharge Patient Instructions, Passing gas rectally and belching is normal Discharge Patient Instructions, Call or come to emergency department for fever greater than 100 ??F Discharge Patient Instructions, Cramping and abdominal bloating should subside in 1 hour or so Discharge Patient Instructions, Call or come to emergency department chest pain, or shortness of breath Discharge Patient Instructions, You may experience some gas cramps and abdominal bloating Discharge Patient Instructions, Call or come to emergency department for dizziness Discharge Patient Instructions, Call or come to emergency department if vomiting blood or having black bowel movements, rectal bleeding or passing blood clots Discharge Patient Instructions, Call or come to emergency department if having unusual pain or severe abdominal pain Discharge Patient Instructions, Avoid alcohol, tranquilizers, sleeping pills, or cold medicines for24 hours Discharge Patient Instructions, You should not be responsible for the care of others Obtain consent, 07/29/23 6:50:00 EDT, Constant Order, 07/29/23 6:50:00 EDT Peripheral IV Insertion, 07/29/23 6:50:00 EDT Saline Lock Convert From IV, 07/29/23 6:50:00 EDT, Stop date 07/29/23 6:50:00 EDT Vital Signs, 07/29/23 6:52:00 EDT, Stop date 07/29/23 6:52:00 EDT, As needed Vital Signs, 07/29/23 6:50:00 EDT, Stop date 07/29/23 6:50:00 EDT, Routine Vital Signs, 07/29/23 6:52:00 EDT, Once, Stop date 07/29/23 6:52:00 EDT Problem List/Past Medical History Ongoing H/O: vertigo Heart murmur Historical Procedure/Surgical History ???Extraction of wisdom tooth Medications Inpatient Sodium Chloride 0.9% 1,000 mL, 1000 mL, IV sodium chloride 0.9% flush, 10 mL, IV Flush, every 8 hr sodium chloride 0.9% flush, 10 mL, IV Flush, As Directed Home calcium carbonate 600 mg (elemental Ca 240 mg) oral tablet, 600 mg= 1 tab, Oral, BID Eligen B12 1000 mcg oral tablet, 1 tab, Oral, Daily Fish Oil 500 mg oral capsule, 1000 mg= 2 cap, Oral, BID magnesium oxide 400 mg (241.3 mg elemental magnesium) oral tablet, 400 mg= 1 tab, Oral, Daily multivitamin adult, oral tablet, 1 tab, Oral, Daily Vitamin D3 400 intl units oral tablet, 10 mcg= 1 tab, Oral, Daily Allergies No Known Medication Allergies Social History Alcohol Current, 1-2 times per year Electronic Cigarette/Vaping Electronic Cigarette Use: Never. Employment/School Employed Home/Environment Lives with Children, Significant other. Living situation: Home/Independent. Sexual Sexually active: Yes. Substance Use Never Tobacco Never tobacco user Tobacco Use:. Family History Breast cancer: Mother. Cervical cancer: Mother. High cholesterol: Father. Family Member(s): ?? MOTHER, at age: 74 Years. Cause of : Electronically Signed on 07/29/23 10:54 AM Jorge Garvin MD Patient Care team information Care Team Related Persons Name: MARIANELA MORE
--- OUTSIDE RECORDS SUMMARY | 2023-11-23 18:33 | XMS_ITS | Continuity of Care Document ---
Author Organization [facility] Address [address] [place] [address] Encounter LTTL_AZ FIN NBR [id number] Date(s): 10/29/22 - 10/29/22 [facility] [address] [place] [address]- [place] Encounter Diagnosis Encounter for screening mammogram for malignant neoplasm of breast(Final) - Discharge Disposition: Home or Self Care Attending Physician: Leila Paredes Admitting Physician: Leila Paredes Referring Physician: Leila Paredes Assessment and Plan Future Appointments Medications calcium carbonate 600 mg (elemental Ca 240 mg) oral tablet 600 mg 1 tab, Oral, BID, # 60 tab, 0 Refill(s) Start Date: 10/28/22 Status: Ordered Eligen B12 1000 mcg oral tablet 1 tab, Oral, Daily, on an empty stomach, # 30 tab, 0 Refill(s) Start Date: 10/28/22 Status: Ordered Fish Oil 500 mg oral capsule 1,000 mg = 2 cap, Oral, BID, # 130 cap, 0 Refill(s) Start Date: 10/28/22 Status: Ordered magnesium oxide 400 mg (241.3 mg elemental magnesium) oral tablet 400 mg = 1 tab, Oral, Daily, # 7 tab, 0 Refill(s) Start Date: 10/28/22 Stop Date: 11/04/22 Status: Ordered multivitamin adult, oral tablet 1 tab, Oral, Daily, # 30 tab, 0 Refill(s) Start Date: 10/28/22 Status: Ordered Vitamin D3 400 intl units oral tablet 10 mcg = 1 tab, Oral, Daily, # 30 tab, 0 Refill(s) Start Date: 10/28/22 Status: Ordered Procedures Procedure Date Related Diagnosis Body Site Status Extraction of wisdom tooth Completed Results Radiology Reports * Exam Date Time Procedure Performing Provider Status 10/29/22 7:39 AM MG Mammo Screening Bilateral DomainUse r, Generated; Auth (Verified) Notes: (MG Mammo Screening Bilateral) Reason For Exam: screening MG Mammo Screening Bilateral EXAM DESCRIPTION: MG Mammo Screening Bilateral 10/29/2022 INDICATION: SCREENING COMPARISON: 10/28/2021 and 10/24/2020 BREAST DENSITY: The breasts are heterogeneously dense which may obscure small masses. FINDINGS: MLO and CC views were performed with digital breast tomosynthesis. Images were reviewed using computer aided detection. No asymmetry, architectural distortion or suspicious grouping of calcifications to suggest malignancy in either breast. ASSESSMENT: No mammographic evidence of malignancy. Negative. BI-RADS category 1. RECOMMENDATION: Screening mammography in 1 year JOB #: [id number] Final Signed by: Alvaro Foley MD Signed (Electronic Signature): 10/29/2022 9:22 am Social History Social History Type Response Tobacco Never tobacco user T obacco Use:. Sex Patient Care team information Care Team Related Persons Name: MARIANELA MORE
--- OUTSIDE RECORDS SUMMARY | 2023-11-23 18:33 | XMS_ITS | Encounter Summary ---
Author Organization [facility] Address [address] [place] [address] Care Team Providers Care Hand Crocheter Name Role Phone Lenin Main MD Primary Care Provider Unavailab le Encounter Details Date Type Department Care Team (Late st Contact Info) Description 09/02/[address] [facility] Pathology & Laboratory Medicine - [facility] [address] [place] [address] Outr Resulting Lab, Provider Social History Tobacco Use Types Packs/Day Years Used Date Smoking Tobacco: Never Assessed Sex and Gender Information Value Date Recorded Sex Assigned at Not on file Gender Identity Not on file Sexual Orientation Not on file documented as of this encounter Plan of Treatment Not on file documented as of this encounter Procedures Procedure Name Priority Date/Time Associated Diagnosis Comments HEPATITIS C AB W REFLEX TO HCV RNA BY PCR Routine 09/02/2021 7:08 EDT documented in this encounter Results * HEPATITIS C AB W REFLEX TO HCV RNA BY PCR (09/02/2021 7:08 EDT) Hep C Antibody Negative Negative 09/03/2021 10:16 EDT [facility] Blood VENOUS BLOOD / Unknown 09/02/2021 7:08 EDT 09/02/2021 17:09 EDT Provider Outr Resulting Lab CHEMISTRY & BLOOD GAS ORDERABLES [facility] [address] [place] [address] documented in this encounter Visit Diagnoses Not on filedocumented in this encounter Care Teams Hand Crocheter Relationship Specialty Start Date End Date Lenin Main MD PCP - General 03/05/15 documented as of this encounter
--- OUTSIDE RECORDS SUMMARY | 2023-11-23 18:33 | XMS_ITS | Encounter Summary ---
Author Organization [facility] Address [address] [place] [address] Care Team Providers Care Sr. Manager Name Role Phone Unavailable Primary Care Provider Unavailabl e Encounter Details Date Type Department Care Team (Late st Contact Info) Description 02/19/2006 Results Only [facility] [address] [place] [address] Day Zamorano ARNP [address] [place] [address] Social History Tobacco Use Types Packs/Day Years Used Date Smoking Tobacco: Never Assessed Sex and Gender Information Value Date Recorded Sex Assigned at Not on file Gender Identity Not on file Sexual Orientation Not on file documented as of this encounter Plan of Treatment Not on file documented as of this encounter Procedures Procedure Name Priority Date/Time Associated Diagnosis Comments CYTOPATHOLOGY Routine 02/19/2006 0:00 EST documented in this encounter Results * CYTOPATHOLOGY (02/19/2006 0:00 EST) Pathology Report: CYTOPATHOLOGY REPORT Reports generated via electronic interface contain original data; however they are lacking the format of the original report. Caution should be taken when reading/interpreti ng unformatted reports. Name: ? ZION RESTREPO ? Accession #: ? [id number] : ? 1975 (Age: 30) ??F ?Collect Date: ? 02/19/2006 Location: ? [facility] ? Receive Date: ? 02/20/2006 Provider: ?DAY HOPKINS Copy to: ?ERWIN JEFFERSON MD ? Specimen/Source: ?ThinPrep Pap Test, Cervix/Endocervix, processed on [employer] ThinPrep Imaging System, with manual evaluation Last Menstrual Period: ? 02/06/06 Other: ? HPVA - HPV testing requested if ASC-US on the current ThinPrep Pap test. ? SPECIMEN ADEQUACY ? Satisfactory for Evaluation - transformation zone component present GENERAL CATEGORIZATION ? Negative for Intraepithelial Lesion or Malignancy ? Document reviewed and electronically signed by: ? Renato Perez, MAGO(ASCP) ? Report Date: ??02/26/2006 08:17 End of Report ANNE LIMON 02/19/2006 02/20/2006 Day HOPKINS PATHOLOGY ORDERAB LES [facility] [address] [place] [address] documented in this encounter Visit Diagnoses Not on filedocumented in this encounter
--- OUTSIDE RECORDS SUMMARY | 2023-11-23 18:33 | XMS_ITS | Data Portability ---
Author Organization [place] - [facility] [place] [address] [place] [address] Assessment No assessment recorded. Plan of Treatment Reminders Order Date Submit Date Provider Last Modified By Organization Details Last Modified Time Details Appointments Follow Up 2023 04:30P M Michelle Raman Not available Not available Not available Follow Up 2023 04:30P M Michelle Raman Not available Not available Not available Lab None recorded. Referral None recorded. Procedures colonosco py screening (PROC) - Due for screening colonosco py 2023 024 [email or web address] [facility], [address], [place], [address], 11/18/2023 07:49:37 Surgeries None recorded. Imaging None recorded. Medication Orders None recorded. Patient TargetsNo targets recorded. Patient Instructions Encounter Date Encounter Id Patient Instructions Last Modified By Organization Details Last Modified Time 05/21/2023 [id number] Increase daily vitamin D to 2000 IU. Try topical diclofenac (Voltaren) or arnica, hand exercises. We can consider hand xray, inflammatory markers down the road. Photo taken of toe. [email or web address] Not available 05/21/2023 15:15:43 Reason for Referral None Reported. Results Created Date Observation Date Name Description Value Unit Range Abnormal Flag LastModifiedBy Organization Detail LastModifiedTime 05/25/1910/29/2022 MAMMO , scree madhavi, bilat eral No observ ation record ed. Not Available 11/06/2023 11:25:12 Result Notes None recorded. Problems Name Status Onset Date Resolution Date Notes Provider Name and Address Organization Details Recorded Time Heart murmur Active 04/07/20 23 long standing with innocent murmur prior w/u neg per pt Normal echo years ago. [address], [place], [address] , [facility], [facility] 05/21/2023 15:08:22 Arthritis Active 04/07/20 23 05/2023 PIP left and right 4th fingers [address], [place], [address] , [facility] 05/21/2023 15:34:11 Lesion of skin of foot Active 05/21/19 24 medial aspect of R 5th toe, first noticed summer [address], [place], [address] , [facility] 05/21/2023 15:35:17 Adult health examination Active 05/21/[address], [place], [address] , [facility] 05/21/2023 20:58:29 Gluten intolerance Active 05/21/[address], [place], [address] , [facility] 05/21/2023 21:00:24 Intolerance to lactose Active 05/21/19 [address] [place], [address] , [facility] 05/21/2023 21:00:40 Problem Notes None recorded. Procedures Surgical History Date Name Laterality Status Provider Name and Address Organization Details Recorded Time 3 Most Recent Mammogram completed CHAZ MENDIOLA, [facility] 04/07/2023 12:42:42 3 Date of Last Pap Smear completed CHAZ MENDIOLA [facility] 04/07/2023 12:42:59 extraction of wisdom tooth completed CHAZ MENDIOLA, [facility] 04/07/2023 12:32:24 Imaging Results Imaging Date Name Status LastModified by Organiz ation Details LastModified Time 10/29/2022 MAMMO, screening, bilateral completed Information not available 11/06/2023 11:25:12 Procedure Notes None recorded. Medical Equipment None Reported. Allergies No known drug allergies Medications Name Sig Start Date Stop Date Status Note LastModified by Organization Details LastModified Time calcium 600mg active Not Available Not Avail able Not Available cranberry active Not Available Not Jasmyne ilable Not Available biotin 10,000 mcg active Not Available Not Available No t Available magnesium gluconate 420mg active Not Available Not Available No t Available [place]-3 active Not Available Not Avail able Not Available One A Day Vitamin active Not Available Not Available Not Available collagen (bovine) 1,000m g active Not Available Not Available No t Available Vitals Date Recorded Body height Body mass index (BMI) Body weight Heart rate Respiratory rate Systolic blood pressure Diastolic blood pressure Provider Name and Address Organization Details Last Updated DateTime 4 157 cm 28.5 kg/m2 94997.1 g 99 /min 18 /min 158 mm[Hg] 99 mm[Hg] Elba fuentes LPN [facility] 4 14:39:01 Date Recorded Body height Heart rate Systolic blood pressure Diastolic blood pressure Provider Name and Address Organization Details Last Updated DateTime 11/23/2023 157 cm 88 /min 140 mm[Hg] 88 mm[Hg] Elba Berger LPN [facility] 11/23/2023 16:35:03 Social History Question Answer Notes LastModified by Organization Details LastModified Time Tobacco Smoking Status Never Smoker Elba Berger LPN [facility] 04/07/2023 11:04:17 What Type Of Diet Are You Following? GLUTENFREE Gluten Free, Dairy Free Information not available 04/07/2023 How Many Days Of Moderate To Strenuous Exercise, Like A Brisk Walk, Did You Do In The Last 7 Days? 5 [email or web address] Information not available 05/21/2023 On Those Days That You Engage In Moderate To Strenuous Exercise, How Many Minutes, On Average, Do You Exercise? 5 [email or web address] Information not available 05/21/2023 How Many Times Per Week Do You Exercise? 5-7 Times Per Week Walking Every Day, Cycling 3 Times A Week Information not available 04/07/2023 What Do You Do For Fun? Cycling, Gardening, Reading, Hiking, Snowshoeing Information not available 04/07/2023 Would You Say That, In General, Your Health Is Excellent [email or web address] Information not available 05/21/2023 How Often Does Anyone, Including Family, Physically Hurt You? Never [email or web address] Information not available 05/21/2023 How Often Does Anyone, Including Family, Insult Or Talk Down To You? Never [email or web address] Information not available 05/21/2023 How Often Does Anyone, Including Family, Threaten You With Harm? Never [email or web address] Information not available 05/21/2023 How Often Does Anyone, Including Family, Scream Or Curse At You? Never [email or web address] Information not available 05/21/2023 Within The Past 12 Months, You Worried That Your Food Would Run Out Before You Got Money To Buy More. Never True Information not available 05/21/2023 Within The Past 12 Months, The Food You Bought Just Didn't Last And You Didn't Have Money To Get More. Never True [email or web address] Information not available 05/21/2023 How Hard Is It For You To Pay For The Very Basics Like Food, Housing, Medical Care, And Heating? Would You Say It Is: Not Hard At All [email or web address] Information not available 05/21/2023 In The Past 12 Months, Has Lack Of Reliable Transportation Kept You From Medical Appointments, Meetings, Work Or From Getting Things Needed For Daily Living? No [email or web address] Information not available 05/21/2023 What Is Your Housing Situation Today? I Have Housing. [email or web address] Information not available 04/07/2023 Who Do You Live With? , Son Information not available 04/07/2023 How Often In The Past Year Have You Used Marijuana (including Smoking, Vaping, Dabbing, Or Edibles)? Never [email or web address] Information not available 04/07/2023 How Often In The Past Year Have You Used Prescription Medications That Were Not Prescribed To You? Never [email or web address] Information not available 04/07/2023 How Often In The Past Year Have You Taken Your Own Prescription Medication More Than The Way It Was Prescribed Or For Different Reasons Than Its Intended Purpose? Never [email or web address] Information not available 04/07/2023 How Often In The Past Year Have You Used Other Drugs (for Example, Heroin, Cocaine, Meth, Salvia, Inhalants)? Never Information not available 04/07/2023 Have You Ever Used IV Drugs? No [email or web address] Information not available 04/07/2023 Date Of Most Recent SBINS 05/21/2023 [email or web address] Information not available 05/21/2023 What Was The Date Of Your Most Recent Tobacco Screening? 11/23/2023 [email or web address] Information not available 11/23/2023 How Many Children Do You Have? 3 03/27/1997- Gertrudis 08/13/1999- Jacqueline 12/16/2001- DJ Information not available 04/07/2023 What Is Your Relationship Status? Information not available 04/07/2023 Has Tobacco Cessation Counseling Been Provided? No [email or web address] Information not available 05/21/2023 Do You Have Any Dietary Restrictions? No Information not available 04/07/2023 Do You Or Have You Ever Used Any Other Forms Of Tobacco Or Nicotine? No [email or web address] Information not available 04/07/2023 Do You Want To Talk About Contraception Or Prevention During Your Visit Today? No - I Am Already Using Contraception Depends Upon Vasectomy Information not available 04/07/2023 Do You Have Any Future Plans To Get ? No, I Don't Want To Become Information not available 04/07/2023 Sex: Female Functional Status Question Answer Note LastModified by Organization D etails LastModified Time What is your exercise level? Moderate [email or web address] Information not available 05/21/2023 Mental Status None recorded. Family History Relationship Description Onset Age of this Age Resolved Age Notes Mother Family history of malignant neoplasm breast Maternal Grandfather Heart disease Paternal Grandfather Cerebrovascular accident Paternal Grandmother Essential hypertension Paternal Grandmother Hypertensive disorder Medical History No medical history recorded. Gynecological History Statement/Question Response Abnormal Pap N Date of Last Pap Smear 10/29/2022 Date of Last Mammogram Most Recent Mammogram 10/29/2022 Date of LMP 01/06/2023 Obstetrics History GPAL:G 3 P 0 0 0 3 Type Value Living 3 Total 3 Immunizations Vaccine Type Date Status Provider Name and Address Organization Details Recorded Time COVID-19, mRNA, LNP-S, PF, 25 mcg/0.25 mL 08/15/2020 completed Elbajohn Elmoreson, AMBULANCE ASSISTANT null, [facility] 04/07/2023 10:54:17 COVID-19, mRNA, LNP-S, PF, 25 mcg/0.25 mL 09/12/2020 completed Elba Berger, AMBULANCE ASSISTANT null, [facility] 04/07/2023 10:54:30 Tdap 09/26/2011 completed Elba Elmoreson, AMBULANCE ASSISTANT null, [facility] 04/07/2023 10:55:23 Td(adult) unspecified formulation 04/20/2004 completed Elba Berger, AMBULANCE ASSISTANT null, [facility] 04/07/2023 10:55:46 Td(adult) unspecified formulation 09/26/2011 completed Elbajohn Elmoreson, AMBULANCE ASSISTANT null, [facility] 04/07/2023 10:55:59 Td(adult) unspecified formulation 02/26/2022 completed Elbajohn Elmoreson, AMBULANCE ASSISTANT null, [facility]. 04/07/2023 10:56:08 Past Encounters Encounter ID Performer Location Encounter Start Date Encounter Closed Date Diagnosis/Indication Diagnosis SNOMED-CT Code [id number] ANGEL LUIS BIRD-LENORE [facility] [address] [place] [address] 05/21/2023 14:03:26 05/21/2023 15:34:14 Lesion of skin of foot 577199320515627 Arthritis 4534835 Adult heal th examination 859965426 Screening for malignant neoplasm of colon [id number] Ana Luisa Ly [facility] [address] [place] [address] 11/23/2023 15:58:31 11/23/2023 17:18:45 Arthritis 1433464 Adult heal th examination [id number] Health Concerns Section Related Observation LastModified by Organization Detai ls LastModified Time None Recorded Concern Status LastModified by Organization Details LastModified Time None Recorded Advance Directives Directive None Recorded Payers Encounter Date Sequence Insurance Name Policy Number Policy Lubin Covered Member ID Lubin Member ID Guarantor Name 05/21/2023 1 [place] [employer] [place] Lucina Lauro [id number] Lucina Restrepo Notes Date Note Type Note Provider Name and Address Organization Details Recorded Time 05/21/2023 text/html HPI Notes: Dairy causes upset stomach, gluten causes lower GI symptoms. Doing well off of these. Pap/mammo through [facility] in [place]. Had colo referral last year, did not receive scheduling call. Transfer of care from [facility], last full exam there 01/2022, receives annual [facility] care in [place], last Pap and mammo 10/2022, normal. No significant past medical history, is on no prescription medications. Family history breast cancer (mother), heart disease (MGF), CVA (PGF), HTN (PGM) MICHELLE MITCHELL, [employer]- [address], [place], [address], [facility], [facility]. 05/21/2023 21:04:00 OBGyn Episode No OBEpisode recorded.
--- OUTSIDE RECORDS SUMMARY | 2023-11-23 18:33 | XMS_ITS | Encounter Summary ---
Author Organization [facility] Address [address] [place] [address] Care Team Providers Care Room Service Clerk Name Role Phone Unavailable Primary Care Provider Unavailabl e Encounter Details Date Type Department Care Team (Late st Contact Info) Description 09/04/2014 Results Only [facility] [phone] Kit Flanagan MD [address] [place] [address] Social History Tobacco Use Types Packs/Day Years Used Date Smoking Tobacco: Never Assessed Sex and Gender Information Value Date Recorded Sex Assigned at Not on file Gender Identity Not on file Sexual Orientation Not on file documented as of this encounter Plan of Treatment Not on file documented as of this encounter Procedures Procedure Name Priority Date/Time Associated Diagnosis Comments PAP TEST- RESULT ONLY Routine 09/04/2014 0:00 EDT documented in this encounter Results * PAP TEST- RESULT ONLY (09/04/2014 0:00 EDT) Pathology Report: CYTOPATHOLOGY REPORT Reports generated via electronic interface contain original data; however they are lacking the format of the original report. Caution should be taken when reading/interpreti ng unformatted reports. Name: ? ZION RESTREPO ? Accession #: ? [id number] : ? 1975 (Age: 38) ??F ?Collect Date: ? 09/04/2014 Location: ? [facility] ? Receive Date: ? 09/07/2014 Provider: ?KIT FLANAGAN MD Copy to: ? Specimen/Source: ?Pap Test, Cervix/Endocervix, ThinPrep Imaging System with manual evaluation Last Menstrual Period: ? SPECIMEN ADEQUACY ? Satisfactory for Evaluation - transformation zone component present GENERAL CATEGORIZATION ? Negative for Intraepithelial Lesion or Malignancy ? Document reviewed and electronically signed by: ? MAGO Lam(ASCP) ? Report Date: ??09/15/2014 13:52 End of Report [facility] 09/04/2014 09/07/2014 Kit Flanagan MD PATHOLOGY ORDERABL ES [facility] [address] [place] [address] documented in this encounter Visit Diagnoses Not on filedocumented in this encounter
--- OUTSIDE RECORDS SUMMARY | 2023-11-23 18:33 | XMS_ITS | Referral Summary ---
Author Organization [facility] Address [address] [place] [address] Care Team Providers Care Groundskeeper Name Role Phone Lenin Main MD Primary Care Provider Unavailab le Social History Tobacco Use Types Packs/Day Years Used Date Smoking Tobacco: Never Assessed Sex and Gender Information Value Date Recorded Sex Assigned at Not on file Gender Identity Not on file Sexual Orientation Not on file Plan of Treatment Not on file Procedures Procedure Name Priority Date/Time Associated Diagnosis Comments HEPATITIS C AB W REFLEX TO HCV RNA BY PCR Routine 09/02/2021 7:08 EDT from Last 3 Months or Most Recently Relevant to Health Maintenance Results * HEPATITIS C AB W REFLEX TO HCV RNA BY PCR (09/02/2021 7:08 EDT) Hep C Antibody Negative Negative 09/03/2021 10:16 EDT [facility] Blood VENOUS BLOOD / Unknown 09/02/2021 7:08 EDT 09/02/2021 17:09 EDT Provider Outr Resulting Lab CHEMISTRY & BLOOD GAS ORDERABLES [facility] [address] [place] [address] from Last 3 Months or Most Recently Relevant to Health Maintenance Care Teams Groundskeeper Relationship Specialty Start Date End Date Lenin Main MD PCP - General 03/05/15
--- OUTSIDE RECORDS SUMMARY | 2023-11-23 18:33 | XMS_ITS | Clinical Summary ---
Author Organization [facility] Address [address] [place] [address] Care Team Providers Care Financial Planning Consultant Name Role Phone Lenin Main MD Primary Care Provider Unavailab le Social History Tobacco Use Types Packs/Day Years Used Date Smoking Tobacco: Never Assessed Sex and Gender Information Value Date Recorded Sex Assigned at Not on file Gender Identity Not on file Sexual Orientation Not on file Plan of Treatment Health Maintenance Due Date Last Done Comments Hepatitis B Vaccine (1 of 3 - 19+ 3-dose series) 11/05 COVID-19 Vaccine (2022- season) 2022 Hepatitis C Screen Completed 09/02/2021 Procedures Procedure Name Priority Date/Time Associated Diagnosis Comments HEPATITIS C AB W REFLEX TO HCV RNA BY PCR Routine 09/02/2021 7:08 EDT from Last 3 Months or Most Recently Relevant to Health Maintenance Results * HEPATITIS C AB W REFLEX TO HCV RNA BY PCR (09/02/2021 7:08 EDT) Hep C Antibody Negative Negative 09/03/2021 10:16 EDT [facility] Blood VENOUS BLOOD / Unknown 09/02/2021 7:08 EDT 09/02/2021 17:09 EDT Provider Outr Resulting Lab CHEMISTRY & BLOOD GAS ORDERABLES [facility] [address] [place] [address] from Last 3 Months or Most Recently Relevant to Health Maintenance Care Teams Financial Planning Consultant Relationship Specialty Start Date End Date Lenin Main MD PCP - General 03/05/15
--- OUTSIDE RECORDS SUMMARY | 2023-11-23 18:33 | XMS_ITS | Encounter Summary ---
Author Organization [facility] Address [address] [place] [address] Care Team Providers Care Leather Coverer Name Role Phone Unavailable Primary Care Provider Unavailabl e Encounter Details Date Type Department Care Team (Late st Contact Info) Description 01/01/2011 Results Only [facility] [phone] Leila Paredes, RABBIT FANCIER [address] [facility] [facility] [facility] [address] Social History Tobacco Use Types Packs/Day Years [...] Diagnosis Comments PAP TEST- RESULT ONLY Routine 01/01/2011 0:00 EDT documented in this encounter Results * PAP TEST- RESULT ONLY (01/01/2011 0:00 EDT) Pathology Report: CYTOPATHOLOGY REPORT ? Reports generated via electronic interface contain original data; ? however they are lacking the format of the original report. ? Caution should be taken when reading/interpreti ng unformatted reports. ? Name: ? DERIK, ZION Lugo ? Accession #: ? [id number] ? : ? 1975 (Age: 35) ??F ?Collect Date: ? 01/01/2011 ? Location: ? [facility] ? Receive Date: ? 01/06/2011 ? Provider: ?LEILA J STEPHEN RABBIT FANCIER ? Copy to: ? Specimen/Source: ?Pap Test, Cervix/Endocervix, ThinPrep Imaging System ? with manual evaluation ? Last Menstrual Period: ? SPECIMEN ADEQUACY ? Satisfactory for Evaluation ? - transformation zone component present ? GENERAL CATEGORIZATION ? Negative for Intraepithelial Lesion or Malignancy ? Document reviewed and electronically signed by: ? Mariana Garay, CT(ASCP) ? Report Date: ??01/09/2011 14:22 ? End of Report ? ANNE LIMON 01/01/2011 01/06/2011 Leila Paredes APRN PATHOLOGY ORDERABLES [facility] [address] [place] [address] documented in this encounter Visit Diagnoses Not on filedocumented in this encounter
--- OUTSIDE RECORDS SUMMARY | 2023-11-23 18:33 | XMS_ITS | Encounter Summary ---
Author Organization [facility] Address [address] [place] [address] Care Team Providers Care Real Time Analyst Name Role Phone Lenin Main MD Primary Care Provider Unavail le Encounter Details Date Type Department Care Team (Late st Contact Info) Description 09/02/2021 Lab Requisition [facility] Pathology & Laboratory Medicine - [facility] [address] [place] [address] Outr Resulting Lab, Provider Social History Tobacco [...] Procedure Name Priority Date/Time Associated Diagnosis Comments HIV 1/2 ANTIGEN AND ANTIBODY, 4TH GENERATION Routine 09/02/2021 7:08 EDT documented in this encounter Results * HIV 1/2 ANTIGEN AND ANTIBODY, 4TH GENERATION (09/02/2021 7:08 EDT) HIV 1 and 2 Antibody/p24 Antigen, 4th Generation Negative Negative 09/03/2021 10:22 EDT [facility] Comment:If acute HIV-1 infec tion is suspected in a high risk patient, submit plasma specimen for HIV-1 RNA quantitation test. Blood VENOUS BLOOD / Unknown 09/02/2021 7:08 EDT 09/02/2021 17:09 EDT Narrative [facility] - 09/03/2021 10:22 EDT Fourth Generation assay performed on the Siemens Centaur XPT. Provider Outr Resulting Lab IMMUNOLOGY A ND SEROLOGY ORDERABLES [facility] [address] [place] [address] documented in this encounter Visit Diagnoses Not on filedocumented in this encounter Care Teams Real Time Analyst Relationship Specialty Start Date End Date Lenin Main MD PCP - General 03/05/15 documented as of this encounter
--- OUTSIDE RECORDS SUMMARY | 2023-11-23 18:33 | XMS_ITS | Continuity of Care Document ---
Author Organization [facility] Address [address] [place] [address] Encounter [facility] NBR [id number] Date(s): 10/29/22 - 10/29/22 [facility] [address] [place], [place] [address] Encounter Diagnosis Cervical cancer screening(Discharge Diagnosis) - 10/29/22 Gynecologic exam normal(Discharge Diagnosis) - 10/29/22 Discharge Disposition: Home or Self Care Attending Physician: Leila Paredes Assessment and Plan Future Appointments Functional Status 10/29/22 Other exposure to Infectious Disease Non e Medications calcium carbonate 600 mg (elemental Ca [...] Site Status Extraction of wisdom tooth Completed Vital Signs Most recent to oldest [Reference Range]: 1 Blood Pressure [90-140/60-90 mmHg] 100/6 0mmHg (10/29/22 7:58 AM) Weight 67.6 kg (10/29/22 7:58 AM) Weight Measured (lbs) 149.032 lb (10/29/22 7:58 AM) [place] Body Weight Calculated 49.665 kg (10/29/22 7:58 AM) Height 157 cm (10/29/22 7:58 AM) Height/Length Measured (inches) 61.81 in ch (10/29/22 7:58 AM) BSA Measured 1.72 m2 (10/29/22 7:58 AM) Body Mass Index 27.43 kg/m2 (10/29/22 7:58 AM) Social History Social History Type Response Tobacco Never tobacco user T obacco Use:. Sex Physician Outpatient Note * Leila Paredes: PERFORM Event Display: Office Clinic Note Physician Authored Date: [id number] ZION MORE :1975 Age:46 years Sex:Female Visit Date:10/29/2022 Chief Complaint Last pap-12/07/17 neg/neg hpv last mammo 10/28/21-neg cat 1 Questions or concerns: none. History of Present Illness ABLE SEAMAN History:?? When reviewing the menstrual history:??She states her cycles are monthly and regular..?? Her pap smear history is??unremarkable..?? Last Pap??12/17/2017.?? For contraception the couple depends upon??vasectomy..?? Vaginal discharge??is minimal..?? Her calcium intake??is adequate..??I recommended 1200 mg of Calcium and 800 IU of Vitamin D daily.?? Her breast health is??relatively unremarkable..?? Her last mammogram??this morning..?? Pain with intercourse??is absent..?? In review of her sexual relationship:??she is and the couple are monogamous..?? When discussing exercise she says she??works for the [employer] and walks 10-12 miles per day.?? Review of Systems GENERAL??Overall she feels well.??DERM no bruise, abrasions, worrisome lesions??CARDIAC??No chest pain, palpitations, syncope.?/ABLE SEAMAN She doesn't have any complaints,??MUSCULOSKELETAL??There are no recent problems with weakness or pain..?NEUROLOGIC??No recent neurologic issues..?ENDOCRINOLO GIC??She has no known issues.?HEMATOLOGIC??She has no known bleeding or clotting disorders..?DEPRESSION SCREENING TOOL??She states her mood is stable.?? Physical Exam Vitals & Measurements BP:??100/60?? HT:??157??cm?? WT:??67.6??kg?? BMI:??27.43?? BSA:??1.72?? REPLACED BY [facility] General Physical Exam:?? GENERAL??Healthy woman appearing her age,??No apparent distress,??Reasonable historian.?? HEENT??PERRL,??No cervical LAD,??No thyromegaly.?? RESPIRATORY??Clear to auscultation bilaterally..?? CARDIAC??Regular rate and rhythm.,??No murmur or rub..?? EXTREMITIES??Grossly normal exam..?? MUSCULOSKELETAL??Grossly normal strength bilaterally..?? DERMATOLOGIC??Grossly normal exam..?? NEUROLOGIC??No focal or gross weakness.,??Strength is symmetric bilaterally..?? BREAST EXAM??Nipples bilaterally appear normal. No worrisome masses or nipple discharge. Bilateral axillas are free of any worrisome lymphadenopathy..?? REPLACED BY [facility] Pelvic Exam:?? EXTERNAL GENITALIA??Labia majora and minora bilaterally are normal in appearance.,??Introitus is normal in external appearance..?? VAGINA??Healthy rugated mucosa..?? VAGINAL DISCHARGE??Thin, minimal, white discharge..?? CERVIX??Healthy in appearance. Pap collected.?? UTERUS??Small and normal in contours.,??Uterus is nontender.,??Adnexal areas bilaterally are normalin size and are nontender..? Assessment/Plan 1.??Gynecologic exam normal??Z01.419 We discussed general health maintenance and improvement strategies. Maintaining a healthy diet richin Calcium, Vitamin D, and [place] 3s is recommended for overall health. She continues to mountain bike and??has a strength training routine. MG prior to appt, and??report is still pending. ? 2.??Cervical cancer screening??Z12.4 Pap smears are not recommended yearly for many women and should be done based on screening recommendations. Many low risk women actually only need a pap every 3 years or every 5 years. This testing is done to look for evidence of precancerous changes involving your cervix or vagina that come as a result of a viral infection from the Human Papilloma Virus. It is still recommended for most women tohave breast and pelvic exams even if they do not need to have a pap smear.?? Ordered: Outside Lab Request, 10/29/22 8:11:00 EDT, Stop date 10/29/22 8:11:00 EDT, Cervical cancer screening ?? Follow Up Instructions prn, one year Problem List/Past Medical History Ongoing No qualifying data Historical Procedure/Surgical History ???Extraction of wisdom tooth Medications calcium carbonate 600 mg (elemental Ca [...] mcg= 1 tab, Oral, Daily Allergies No active allergies Social History Alcohol Current, 1-2 times per week Electronic Cigarette/Vaping Electronic Cigarette Use: Never. Employment/School Employed Home/Environment Lives with Children, Significant other. Living situation: Home/Independent. Sexual Sexually active: Yes. Substance Use Never Tobacco Never tobacco user Tobacco Use:. Family History Breast cancer: Mother. Cervical cancer: Mother. High cholesterol: Father. Family Member(s): ?? MOTHER, at age: 74 Years. Cause of : Electronically Signed on 10/29/22 12:45 PM Leila Paredes Patient Care team information Care Team Related Persons Name: MARIANELA MORE
[2023-11-23 20:26] LABS: Abs Immature Grans 0.03 10^3/uL (0.0-0.06); Absolute Basophil Count 0.05 10^3/uL (0.0-0.2); Absolute Eosinophil Count 0.05 10^3/uL (0.0-0.7); Absolute Lymphocyte Count 2.58 10^3/uL (1.2-3.4); Absolute Monocyte Count 0.68 10^3/uL (0.1-0.8); Absolute Neutrophil Count 6.78 10^3/uL (1.2-6.7); Basophils % 0.5 %; Eosinophils % 0.5 %; HCT 40.6 % (36.0-46.0); HGB 13.5 g/dL (11.2-15.7); Immature Grans % 0.3 %; Lymphocytes % 25.4 %; MCHC 33.3 % (32.0-36.0); MCV 90 fL (80-95); MPV 10.3 fL (8.0-11.0); Monocytes % 6.7 %; Neutrophils % 66.6 %; Platelet Count 348 10^3/uL (130-400); RDW 12.3 % (11.7-14.6); RDW-SD 40.5 fL; WBC 10.17 10^3/uL (4.4-10.8)
[2023-11-23 20:28] LABS: ESR 6 mm/hr (0-20)
[2023-11-23 20:49] LABS: ALT 30 U/L (14-59); AST 20 U/L (15-37); Albumin 3.9 g/dL (3.4-5.0); Alkaline Phosphatase 70 U/L (46-116); Anion Gap 10.2 mmol/L (3-11); BUN 10 mg/dL (7-18); Bilirubin, Total 0.34 mg/dL (0.2-1.0); CO2 26.8 mmol/L (21.0-32.0); CREATININE 0.5 mg/dL (0.55-1.02); Calcium 9.2 mg/dL (8.5-10.1); Calculated LDL 114 mg/dL (<100); Chloride 103 mmol/L (98-107); Cholesterol 214 mg/dL (<200); Glucose 87 mg/dL (74-106); HDL Cholesterol 73 mg/dL (40-60); Potassium 3.6 mmol/L (3.5-5.1); Sodium 140 mmol/L (136-145); TSH (W/Ref FT4) 1.44 uIU/mL (0.36-3.74); Triglyceride 139 mg/dL (<150)
[2023-11-23 20:53] LABS: C-Reactive Protein < 0.50 mg/dL (<or=0.5)
[2023-11-24 17:31] LABS: Rheumatoid Factor <8.6 IU/mL (<12.0)
[2023-11-24 18:51] LABS: Hemoglobin A1C 5.2 % (<5.7)
[2023-11-25 15:42] LABS: ANA Interpretation Negative (Negative)
== END 2023-11-23 18:32 | disposition home or self-care (01) ==
LOC: NCHCN 18:31
PROVIDERS: Visit Provider Nurse Practitioner Family
DX: Z00.00 Encounter for general adult medical examination without abnormal findings (principal)
CPT/HCPCS: 80053; 80061; 82306; 85652; 83036; 84443; 85025; 86038; 86140; 86431

== ENCOUNTER 2023-12-02 08:36 | Outpatient (CLI) | payer BC, SELFPAY ==
--- NOTE | 2023-12-02 12:30 | DI.RAD_ITS ---
Exam(s) XR ARTHRITIS SERIES EXAM: XR ARTHRITIS SERIES CLINICAL HISTORY: ARTHRITIS, M19.90,? ENLARGED 4TH FINGER PIP JOINT BILAT. TECHNIQUE: 2D digital imaging was performed. Two images were obtained. COMPARISON: No exams were available for comparison FINDINGS: BONES: No acute fracture is present. No bony destructive lesion is seen. JOINTS: No dislocation present. The carpal joints are well maintained, as are the metacarpophalangea l joints. There is joint space narrowing and osteophytes seen in the interphalangeal joints, particu larly the PIP joints of the ring fingers bilaterally. At these joints there is joint space narrowing , osteophytes and central erosion present. The arthritic changes are seen to a lesser degree elsewhe re. SOFT TISSUE: Normal. IMPRESSION: Marked arthrosis seen at the PIP joints of the ring fingers bilaterally. Erosive osteoarthritis shou ld be considered. Due to the bilaterality, infection is considered less likely. DATA REPOSITORY: RADIATION DOSE DELIVERED:
== END 2023-12-02 08:56 ==
LOC: DI 08:36
PROVIDERS: PCP Nurse Practitioner Family; Visit Provider Nurse Practitioner Family
DX: M19.041 Primary osteoarthritis, right hand (principal); M19.042 Primary osteoarthritis, left hand
CPT/HCPCS: 73120

== ENCOUNTER 2024-03-31 03:20 | Outpatient (CLI) | payer BC, SELFPAY ==
[2024-04-01 09:28] LABS: Cyclic Citrullinated Peptide <2.5 U/mL (<5.0)
== END 2024-03-31 03:21 | disposition home or self-care (01) ==
LOC: LBO 03:20
PROVIDERS: PCP Nurse Practitioner Family; Visit Provider Internal Medicine Rheumatology
DX: M79.641 Pain in right hand (principal); M79.642 Pain in left hand
CPT/HCPCS: 36415; 86200